=== PATIENT | female | born 1955 | race Caucasian/White ===

== ENCOUNTER 2017-03-26 13:20 | Emergency (ER) | payer OTHER ==
[~2017-03-26] VITALS: Ht 152.4 cm; Wt 66.8 kg
[~2017-03-26 13:20] MED LIST: ACET500T76 PO
[2017-03-26] MEDS ORDERED: ALBUTEROL/IPRATROPIUM 2.5MG/0.5MG, 3 ML NPPB ONE (14:00)
[2017-03-26] MEDS ORDERED: ALBUTEROL/IPRATROPIUM 2.5MG/0.5MG, 3 ML ONE (14:45)
[2017-03-26 15:14] LABS: BLOOD UREA NITROGEN 21 mg/dL (7-18)
[2017-03-26 15:19] LABS: IS PT STATUS REG ER OR PRE ER? YES
[2017-03-26 17:10] VITALS: BP 154/55
[2017-03-26] MEDS ORDERED: OMNIPAQUE 350 MG/ML, 100ML BOTTLE ONE (17:30)
== END 2017-03-26 18:13 | disposition home or self-care (01) ==
LOC: ED 16:27
DX: J02.8 Acute pharyngitis due to other specified organisms (principal); B97.89 Other viral agents as the cause of diseases classified elsewhere
CPT/HCPCS: 36415; 71020; 71275; 80048; 82040; 84484; 85025; 85379; 93005; 94640; 99285; J7512; Q9967; J7620

== ENCOUNTER 2017-03-29 10:50 | Inpatient (IN) | payer OTHER ==
[~2017-03-29] VITALS: Ht 152.4 cm; Wt 61.8 kg
[~2017-03-29 10:50] MED LIST changes: +ACET500T71 PO; -ACET500T76 PO
[2017-03-29] MEDS ORDERED: ALPR0.25 PO (11:22)
[2017-03-29] MEDS ORDERED: ALBUTEROL/IPRATROPIUM 2.5MG/0.5MG, 3 ML ONE (11:53)
[2017-03-29] MEDS: methylPREDNISolone SOD SUCC 125 MG/2 ML IVP ONE ×2 (12:00→16:34)
[2017-03-29] MEDS ORDERED: SODIUM CHLORIDE FLUSH 10ML SYR IVF ONE (12:00)
[2017-03-29] MEDS ORDERED: ALBUTEROL/IPRATROPIUM 2.5MG/0.5MG, 3 ML NPPB ONE (12:00)
[2017-03-29 12:17] LABS: ABG COLLECTION SITE LEFT BRACHIAL
[2017-03-29 12:23] LABS: ASPARTATE AMINO TRANSFERASE 22 U/L (15-37); BLOOD UREA NITROGEN 19 mg/dL (7-18)
[2017-03-29 12:31] LABS: IS PT STATUS REG ER OR PRE ER? YES
[2017-03-29] MEDS ORDERED: SODIUM CHLORIDE FLUSH 10ML SYR IVF PRN (13:30)
[2017-03-29] MEDS ORDERED: GUAIFENESIN/DM 200-20MG, 10ML UDC PO PRN (14:00)
[2017-03-29] MEDS ORDERED: KETOROLAC 30 MG/1 ML IVPush PRN (14:00)
[2017-03-29] MEDS ORDERED: ONDANSETRON 2MG/ML, 2ML IVPush PRN (14:00)
[2017-03-29] MEDS ORDERED: ZOLPIDEM 5MG TABLET PO PRN (14:00)
[2017-03-29] MEDS ORDERED: POLYETHYLENE GLYCOL 17 GM PACKET PO PRN (14:00)
[2017-03-29] MEDS ORDERED: DOCUSATE 100 MG CAPSULE PO PRN (14:00)
[2017-03-29] MEDS ORDERED: BISACODYL 10 MG SUPP PR PRN (14:00)
[2017-03-29] MEDS ORDERED: ALBUTEROL/IPRATROPIUM 2.5MG/0.5MG, 3 ML NPPB PRN (14:30)
[2017-03-29 14:46] VITALS: BP 129/78
[2017-03-29] MEDS: BENZONATATE 100 MG CAPSULE PO SCH ×2 (16:00→20:56)
[2017-03-29] MEDS: CEFTRIAXONE PMX 1GM/50ML 50 ML IV SCH (16:34)
[2017-03-29] MEDS: ENOXAPARIN 40 MG/0.4 ML SQ SCH (16:34)
[2017-03-29] MEDS: ACETAMINOPHEN 325 MG TABLET PO PRN (16:35)
[2017-03-29] MEDS: methylPREDNISolone SOD SUCC 125 MG/2 ML IVPush SCH ×2 (16:37→22:37)
[2017-03-29] MEDS ORDERED: ALBUTEROL/IPRATROPIUM 2.5MG/0.5MG, 3 ML NPPB SCH (18:00)
[2017-03-29] MEDS: ALBUTEROL/IPRATROPIUM 2.5MG/0.5MG, 3 ML NPPB SCH (19:31)
[2017-03-29] MEDS: DOXYCYCLINE 100 MG in DEXTROSE 5% 250 ML IV SCH (20:02)
[2017-03-29] MEDS: MONTELUKAST 10 MG TABLET PO SCH (20:57)
[2017-03-29] MEDS: GUAIFENESIN ER 600 MG TABLET PO SCH (20:58)
[2017-03-29] MEDS: SODIUM CHLORIDE FLUSH 3ML SYRINGE IVF SCH (20:58)
[2017-03-29 21:03] VITALS: BP 129/78
[2017-03-29] MEDS: FLUTICASONE NASAL SPRAY 16GM NAS SCH (22:37)
[2017-03-30 01:43] VITALS: BP 103/64
[2017-03-30] MEDS: ACETAMINOPHEN 325 MG TABLET PO PRN ×4 (03:05→20:35)
[2017-03-30] MEDS: methylPREDNISolone SOD SUCC 125 MG/2 ML IVPush SCH ×2 (04:36→09:03)
[2017-03-30 04:50] LABS: ABG COLLECTION SITE RIGHT RADIAL; COLLATERAL CIRCULATION TESTING NORMAL
[2017-03-30 05:33] LABS: BLOOD UREA NITROGEN 19 mg/dL (7-18)
[2017-03-30 06:40] VITALS: BP 126/71
[2017-03-30] MEDS: ALBUTEROL/IPRATROPIUM 2.5MG/0.5MG, 3 ML NPPB SCH ×4 (07:00→19:45)
[2017-03-30] MEDS: DOXYCYCLINE 100 MG in DEXTROSE 5% 250 ML IV SCH ×2 (08:53→20:35)
[2017-03-30] MEDS: GUAIFENESIN ER 600 MG TABLET PO SCH ×2 (08:55→20:35)
[2017-03-30] MEDS: FLUTICASONE/VILANTEROL 100-25MCG/INH INH SCH (08:55)
[2017-03-30] MEDS: BENZONATATE 100 MG CAPSULE PO SCH ×3 (08:55→21:06)
[2017-03-30] MEDS: FLUTICASONE NASAL SPRAY 16GM NAS SCH ×2 (08:56→20:35)
[2017-03-30] MEDS: SODIUM CHLORIDE FLUSH 3ML SYRINGE IVF SCH ×2 (09:03→20:35)
[2017-03-30 13:37] VITALS: BP 109/69
[2017-03-30] MEDS: CEFTRIAXONE PMX 1GM/50ML 50 ML IV SCH (16:20)
[2017-03-30] MEDS: methylPREDNISolone SOD SUCC 40 MG/ML IVPush SCH (16:20)
[2017-03-30] MEDS: ENOXAPARIN 40 MG/0.4 ML SQ SCH (16:20)
[2017-03-30 19:02] VITALS: BP 97/61
[2017-03-30] MEDS: MONTELUKAST 10 MG TABLET PO SCH (20:35)
[2017-03-31] MEDS: methylPREDNISolone SOD SUCC 40 MG/ML IVPush SCH ×2 (00:42→13:45)
[2017-03-31 00:47] VITALS: BP 93/55
[2017-03-31 05:00] LABS: BLOOD UREA NITROGEN 18 mg/dL (7-18)
[2017-03-31] MEDS: ALBUTEROL/IPRATROPIUM 2.5MG/0.5MG, 3 ML NPPB SCH ×4 (07:37→19:58)
[2017-03-31 08:22] VITALS: BP 125/74
[2017-03-31] MEDS: DOXYCYCLINE 100 MG in DEXTROSE 5% 250 ML IV SCH ×2 (08:22→21:24)
[2017-03-31] MEDS: FLUTICASONE NASAL SPRAY 16GM NAS SCH ×2 (08:23→21:24)
[2017-03-31] MEDS: GUAIFENESIN ER 600 MG TABLET PO SCH ×2 (08:23→21:23)
[2017-03-31] MEDS: SODIUM CHLORIDE FLUSH 3ML SYRINGE IVF SCH ×2 (08:23→21:00)
[2017-03-31] MEDS: FLUTICASONE/VILANTEROL 100-25MCG/INH INH SCH (08:23)
[2017-03-31] MEDS: BENZONATATE 100 MG CAPSULE PO SCH ×3 (08:24→21:24)
[2017-03-31 13:01] VITALS: BP 102/63
[2017-03-31] MEDS: ENOXAPARIN 40 MG/0.4 ML SQ SCH (17:52)
[2017-03-31] MEDS: CEFTRIAXONE PMX 1GM/50ML 50 ML IV SCH (17:52)
[2017-03-31 19:38] VITALS: BP 145/83
[2017-03-31] MEDS: MONTELUKAST 10 MG TABLET PO SCH (21:23)
[2017-03-31] MEDS: METHOCARBAMOL 500 MG TABLET PO PRN (21:23)
[2017-03-31] MEDS: ACETAMINOPHEN 325 MG TABLET PO PRN (21:24)
[2017-04-01] MEDS: methylPREDNISolone SOD SUCC 40 MG/ML IVPush SCH (00:08)
[2017-04-01 00:42] VITALS: BP 121/70
[2017-04-01 06:55] VITALS: BP 108/61
[2017-04-01] MEDS: ALBUTEROL/IPRATROPIUM 2.5MG/0.5MG, 3 ML NPPB SCH ×3 (07:16→21:00)
[2017-04-01] MEDS: BENZONATATE 100 MG CAPSULE PO SCH ×3 (08:37→21:39)
[2017-04-01] MEDS: GUAIFENESIN ER 600 MG TABLET PO SCH ×2 (08:38→21:39)
[2017-04-01] MEDS: FLUTICASONE NASAL SPRAY 16GM NAS SCH ×2 (08:39→21:40)
[2017-04-01] MEDS: FLUTICASONE/VILANTEROL 100-25MCG/INH INH SCH (08:39)
[2017-04-01] MEDS: DOXYCYCLINE 100 MG in DEXTROSE 5% 250 ML IV SCH ×2 (08:40→19:22)
[2017-04-01] MEDS: SODIUM CHLORIDE FLUSH 3ML SYRINGE IVF SCH ×2 (08:41→21:00)
[2017-04-01] MEDS ORDERED: GUAIFENESIN/DM 200-20MG, 10ML UDC PO PRN (12:00)
[2017-04-01] MEDS ORDERED: OMNIPAQUE 350 MG/ML, 100ML BOTTLE ONE (12:24)
[2017-04-01 12:25] VITALS: BP 105/62
[2017-04-01] MEDS: CEFTRIAXONE PMX 1GM/50ML 50 ML IV SCH (16:09)
[2017-04-01] MEDS: ENOXAPARIN 40 MG/0.4 ML SQ SCH (16:09)
[2017-04-01 20:14] VITALS: BP 127/79
[2017-04-01] MEDS: MONTELUKAST 10 MG TABLET PO SCH (21:39)
[2017-04-01] MEDS: METHOCARBAMOL 500 MG TABLET PO PRN (21:39)
[2017-04-01 23:49] VITALS: BP 119/68
[2017-04-02] VITALS: BP 119/68
[2017-04-02] MEDS: ALBUTEROL/IPRATROPIUM 2.5MG/0.5MG, 3 ML NPPB SCH ×2 (03:00→07:37)
[2017-04-02 06:45] VITALS: BP 107/72
[2017-04-02] MEDS: DOXYCYCLINE 100 MG in DEXTROSE 5% 250 ML IV SCH (07:52)
[2017-04-02] MEDS: GUAIFENESIN ER 600 MG TABLET PO SCH (07:53)
[2017-04-02] MEDS: SODIUM CHLORIDE FLUSH 3ML SYRINGE IVF SCH (07:53)
[2017-04-02] MEDS: BENZONATATE 100 MG CAPSULE PO SCH (07:53)
[2017-04-02] MEDS: FLUTICASONE/VILANTEROL 100-25MCG/INH INH SCH (09:47)
[2017-04-02] MEDS: FLUTICASONE NASAL SPRAY 16GM NAS SCH (09:47)
[2017-04-02] MEDS ORDERED: MONT10TA9 PO (10:34)
[2017-04-02] MEDS ORDERED: GUAI600T22 PO (10:34)
[2017-04-02] MEDS ORDERED: PRED20TA PO (10:34)
[2017-04-02] MEDS ORDERED: BENZ100C4 PO (10:34)
[2017-04-02] MEDS ORDERED: CEFD300C37 PO (10:35)
[2017-04-02] MEDS ORDERED: DOXY100C2 PO (10:35)
[2017-04-03 18:06] LABS: ANA DIRECT Positive (Negative); COMPLEMENT C3 135 mg/dL (82-167); COMPLEMENT C4 28 mg/dL (14-44); INTERMYOFIBRILLAR AB Negative (Neg:<1:20); MITOCHONDRIAL (M2) AB 12.8 Units (0.0-20.0); PARIETAL CELL AB 4.4 Units (0.0-20.0); RA LATEX TURBIDITY 20.6 IU/mL (0.0-13.9); SARCOLEMMA AB Negative (Neg:<1:20); SJOGREN'S SS-A AB <0.2 AI (0.0-0.9); STRIATION AB Negative (Neg:<1:40); THYROID PEROXIDASE (TPO) AB 5 IU/mL (0-34)
[2017-04-04 14:32] LABS: RHEUMATOID FACTOR SCREEN POSITIVE (NEGATIVE)
== END 2017-04-02 12:40 | disposition home or self-care (01) | DRG 152 ==
LOC: ED 11:47 → EDIP 13:19 → SUATTDRO 13:21 → 3NW 14:58 → 4EST 03-31 09:00
PROVIDERS: ADMIT Internal Medicine; ATTEND Internal Medicine
DX: J06.9 Acute upper respiratory infection, unspecified (principal); J18.9 Pneumonia, unspecified organism; I48.92 Unspecified atrial flutter; E87.3 Alkalosis; J40 Bronchitis, not specified as acute or chronic; M06.9 Rheumatoid arthritis, unspecified; D72.829 Elevated white blood cell count, unspecified; I48.91 Unspecified atrial fibrillation; Z80.0 Family history of malignant neoplasm of digestive organs; F17.200 Nicotine dependence, unspecified, uncomplicated; F41.9 Anxiety disorder, unspecified; T38.0X5A Adverse effect of glucocorticoids and synthetic analogues, initial encounter; Z90.710 Acquired absence of both cervix and uterus; Z88.6 Allergy status to analgesic agent; Z88.8 Allergy status to other drugs, medicaments and biological substances; Z88.0 Allergy status to penicillin; Z83.6 Family history of other diseases of the respiratory system
CPT/HCPCS: 36415; 36600; 70491; 71010; 71250; 80048; 80053; 80329; 81003; 82803; 83516; 83605; 83880; 84145; 84443; 84484; 85025; 85651; 86038; 86141; 86160; 86225; 86235; 86255; 86256; 86376; 86430; 86431; 86677; 86713; 87040; 87070; 87081; 87205; 87278; 87281; 87880; 93005; 93306; 94640; 99285; J0696; J1650; J7060; J7620; Q9967; G0480; J2920; J2930; J7512

== ENCOUNTER → 2018-01-15 | Outpatient (CLI) | payer OTHER ==
[~2018-01-15] MED LIST changes: +ALPR0.25 PO; +BENZ-17 PO; +CEFD300C37 PO; +DOXY100C2 PO; +GUAI600T31 PO; +MONT10TA9 PO; +PRED20TA PO
== END | disposition home or self-care (01) ==
LOC: RAD 10:06
PROVIDERS: ATTEND Otolaryngology
DX: R13.10 Dysphagia, unspecified (principal); R49.0 Dysphonia
CPT/HCPCS: 74230

== ENCOUNTER → 2019-09-05 | Outpatient (CLI) | payer BC ==
[~2019-09-05] MED LIST changes: +ACET500T64 PO; -ACET500T71 PO
== END | disposition home or self-care (01) ==
LOC: CFH 12:24
PROVIDERS: ATTEND Internal Medicine
DX: R91.1 Solitary pulmonary nodule (principal); M47.814 Spondylosis without myelopathy or radiculopathy, thoracic region; Z96.89 Presence of other specified functional implants; Z87.891 Personal history of nicotine dependence
CPT/HCPCS: 71250